=== PATIENT | male | born 1945 | race Hispanic/Latino ===

== ENCOUNTER 2021-12-16 09:18 | Inpatient (IN) | payer MEDICARE, OTHER ==
[2021-12-16] VITALS (7 sets, daily range): BP systolic 134–143; BP diastolic 65–77
[~2021-12-16] VITALS: Ht 157.5 cm; Wt 67.4 kg
[~2021-12-16 09:18] MED LIST: ASPIRIN81 MG PO; EFFIENT10 MG PO; FAMOTIDINE20 MG PO; GLIMEPIRIDE2 MG PO; HUMALOG MI100 UNIT/2 SQ; HUMULIN 70100 UNIT/1 SC; LIPITOR10 MG PO; LOVASTATIN40 MG PO; METFORMIN HCL850 MG PO; OXYBUTYNIN CHLOR5 M1 PO; PAROXETINE HCL20 MG PO; VASOTEC10 M1 PO
[2021-12-16 09:43] LABS: BASOPHILS # (AUTO) 0.1 (0.0-0.1); BASOPHILS % 1.4 % (0.0-1.0); EOSINOPHILS # (AUTO) 0.2 (0.0-0.4); EOSINOPHILS % 4.6 % (0.0-6.0); HEMATOCRIT 27.1 % (38.2-49.6); HEMOGLOBIN 7.7 g/dL (14.0-18.0); LYMPHOCYTES # (AUTO) 0.6 (1.0-3.2); LYMPHOCYTES % 11.4 % (18.0-39.1); MEAN CORPUSCULAR HEMOGLOBIN 20.4 pg (28-32); MEAN CORPUSCULAR HGB CONC 28.4 g/dL (31-35); MEAN CORPUSCULAR VOLUME 71.7 fL (81-99); MONOCYTES # (AUTO) 0.5 (0.2-0.8); MONOCYTES % 10.4 % (4.4-11.3); NEUTROPHILS # (AUTO) 3.7 (2.1-6.9); NEUTROPHILS % 71.8 % (38.7-80.0); PLATELET COUNT 149 x10e3/uL (140-360); RED BLOOD COUNT 3.78 x10e6/uL (4.3-5.7); RED CELL DISTRIBUTION WIDTH 20.3 % (11.7-14.4)
[2021-12-16 10:02] LABS: INR 1.01; PROTHROMBIN TIME 14.2 seconds (11.9-14.5)
[2021-12-16 10:03] LABS: ALBUMIN 3.2 g/dL (3.5-5.0); ALBUMIN/GLOBULIN RATIO 1.1 (0.8-2.0); ANION GAP 14.5 mmol/L (8-16); CALCIUM 8.1 mg/dL (8.4-10.2); CREATININE, SERUM 0.93 mg/dL (0.72-1.25); POTASSIUM 4.5 mmol/L (3.5-5.1)
[2021-12-16] MEDS ORDERED: SODIUM CHLORIDE 0.9% 100 ML ONE (10:21)
[2021-12-16] MEDS ORDERED: IOPAMIDOL 370 MG/ML 100 ML INFUS..BTL INJ ONE (10:21)
[2021-12-16] MEDS ORDERED: SODIUM CHLORIDE 0.9% 1000ML 1,000 ML IV SCH (11:45)
[2021-12-16] MEDS ORDERED: ACETAMINOPHEN 325 MG TAB PO PRN (13:30)
[2021-12-16] MEDS ORDERED: DOCUSATE SODIUM 100 MG CAP PO PRN (13:30)
[2021-12-16] MEDS ORDERED: DEXTROSE 50% SYRINGE 50 ML IV PRN ×2 (13:30→14:00)
[2021-12-16] MEDS ORDERED: SIMETHICONE 80 MG CHEW PO PRN (13:30)
[2021-12-16] MEDS ORDERED: POTASSIUM CHLORIDE 20 MEQ TAB CR PO PRN (13:30)
[2021-12-16] MEDS ORDERED: DIPHENHYDRAMINE HCL 25 MG CAP PO PRN (13:30)
[2021-12-16] MEDS ORDERED: TRAMADOL HCL 50 MG TAB PO PRN (13:30)
[2021-12-16] MEDS ORDERED: LIDOCAINE 4% PATCH TP PRN (13:30)
[2021-12-16] MEDS ORDERED: ALBUTEROL/IPRATROPIUM 3 ML NEB NEB PRN (13:30)
[2021-12-16] MEDS ORDERED: BENZONATATE 100 MG CAP PO PRN (13:30)
[2021-12-16] MEDS ORDERED: HYDRALAZINE HCL 20 MG/ML VIAL IV PRN (13:30)
[2021-12-16] MEDS ORDERED: ONDANSETRON HCL INJ 2MG/ML 2ML 2 MG/ML VIAL IV PRN (13:30)
[2021-12-16] MEDS: OCTREOTIDE ACETATE 500 MCG in SODIUM CHLORIDE 0.9% 250ML 250 ML IV SCH (14:38)
[2021-12-16] MEDS: DEXTROSE 5%/0.9% SOD CHL 1,000 ML IV SCH (14:38)
[2021-12-16 14:43] LABS: HEMATOCRIT 25.4 % (38.2-49.6); HEMOGLOBIN 7.4 g/dL (14.0-18.0)
[2021-12-16 14:47] LABS: % IRON SATURATION 3 % (15-50); IRON 16 ug/dL (65-175); TOTAL IRON BINDING CAPACITY 521 ug/dL (261-478); TRANSFERRIN 372 mg/dL (174-364)
[2021-12-16] MEDS: PROPRANOLOL HCL 10 MG TAB PO SCH (16:07)
[2021-12-16] MEDS: INSULIN LISPRO 100 UNIT/1 ML 3ML VIAL SQ SCH ×2 (16:22→21:30)
[2021-12-16] MEDS ORDERED: SODIUM CHLORIDE 0.9% 250ML 250 ML IV ONE (17:15)
[2021-12-16 19:39] LABS: HEMATOCRIT 24.4 % (38.2-49.6)
[2021-12-16] MEDS ORDERED: ATORVASTATIN 10 MG TAB PO SCH (21:00)
[2021-12-16] MEDS ORDERED: MELATONIN 5 MG TABLET PO PRN (21:00)
[2021-12-16] MEDS ORDERED: SODIUM CHLORIDE 0.9% 250ML 500 ML ONE (22:11)
[2021-12-17] VITALS (8 sets, daily range): BP systolic 97–149; BP diastolic 64–84
[2021-12-17] MEDS: DEXTROSE 5%/0.9% SOD CHL 1,000 ML IV SCH ×3 (00:37→21:25)
[2021-12-17 06:00] LABS: BASOPHILS # (AUTO) 0.1 (0.0-0.1); BASOPHILS % 1.2 % (0.0-1.0); EOSINOPHILS # (AUTO) 0.2 (0.0-0.4); EOSINOPHILS % 4.8 % (0.0-6.0); HEMATOCRIT 29.5 % (38.2-49.6); LYMPHOCYTES # (AUTO) 0.6 (1.0-3.2); LYMPHOCYTES % 14.6 % (18.0-39.1); MEAN CORPUSCULAR HEMOGLOBIN 22.8 pg (28-32); MEAN CORPUSCULAR HGB CONC 30.5 g/dL (31-35); MEAN CORPUSCULAR VOLUME 74.7 fL (81-99); MONOCYTES # (AUTO) 0.6 (0.2-0.8); MONOCYTES % 14.1 % (4.4-11.3); NEUTROPHILS # (AUTO) 2.7 (2.1-6.9); NEUTROPHILS % 65.1 % (38.7-80.0); PLATELET COUNT 119 x10e3/uL (140-360); RED BLOOD COUNT 3.95 x10e6/uL (4.3-5.7); RED CELL DISTRIBUTION WIDTH 21.3 % (11.7-14.4)
[2021-12-17 07:09] LABS: ANION GAP 13.4 mmol/L (8-16); CALCIUM 7.7 mg/dL (8.4-10.2); CREATININE, SERUM 0.9 mg/dL (0.72-1.25); MAGNESIUM 1.6 MG/DL (1.3-2.1); POTASSIUM 4.4 mmol/L (3.5-5.1)
[2021-12-17 07:29] LABS: FERRITIN 12.02 ng/mL (21.81-274.66)
[2021-12-17] MEDS ORDERED: PANTOPRAZOLE SOD 40 MG TABEC PO SCH (07:30)
[2021-12-17 07:59] LABS: ANISOCYTOSIS MODERATE; HYPOCHROMASIA MODERATE; MICROCYTOSIS MODERATE; OVALOCYTES FEW; PLATELET ESTIMATE SLIGHTLY DECREASED; PLATELET MORPHOLOGY COMMENT NORMAL; RBC MORPHOLOGY COMMENT ABNORMAL
[2021-12-17 08:00] LABS: TARGET CELLS FEW
[2021-12-17] MEDS: OCTREOTIDE ACETATE 500 MCG in SODIUM CHLORIDE 0.9% 250ML 250 ML IV SCH (08:48)
[2021-12-17] MEDS: PAROXETINE HCL 20 MG TAB PO SCH (08:51)
[2021-12-17] MEDS: PROPRANOLOL HCL 10 MG TAB PO SCH ×2 (08:51→16:56)
[2021-12-17] MEDS: OXYBUTYNIN CHLORIDE XL 5 MG TAB PO SCH (08:51)
[2021-12-17] MEDS ORDERED: SODIUM CHLORIDE 0.9% 250ML 250 ML ONE (08:53)
[2021-12-17] MEDS: INSULIN LISPRO 100 UNIT/1 ML 3ML VIAL SQ SCH ×4 (08:53→21:00)
[2021-12-17 11:37] LABS: HEMATOCRIT 32.4 % (38.2-49.6); HEMOGLOBIN 9.6 g/dL (14.0-18.0)
[2021-12-17 16:28] LABS: BODY FLUID APPEARANCE CLOUDY; BODY FLUID COLOR YELLOW; BODY FLUID TYPE PERITONEAL
[2021-12-17 16:29] LABS: RBC,BODY FLUID < 2000 cells/uL; WBC,BODY FLUID 183 cells/uL
[2021-12-17 18:10] LABS: LYMPHOCYTES,BODY FLUID 37 %; MONO/MACROPHG,BODY FLUID 56 %; NEUTROPHILS,BODY FLUID 5 %; OTHER CELLS,BODY FLUID 2 %
[2021-12-17 18:46] LABS: HEMATOCRIT 29.1 % (38.2-49.6); HEMOGLOBIN 8.8 g/dL (14.0-18.0)
[2021-12-18] VITALS (9 sets, daily range): BP systolic 126–154; BP diastolic 60–74
[2021-12-18 00:42] LABS: HEMATOCRIT 26.7 % (38.2-49.6); HEMOGLOBIN 8.1 g/dL (14.0-18.0)
[2021-12-18 05:26] LABS: HEMATOCRIT 30.1 % (38.2-49.6); HEMOGLOBIN 9.2 g/dL (14.0-18.0)
[2021-12-18] MEDS: DEXTROSE 5%/0.9% SOD CHL 1,000 ML IV SCH ×3 (06:25→18:06)
[2021-12-18] MEDS: OCTREOTIDE ACETATE 500 MCG in SODIUM CHLORIDE 0.9% 250ML 250 ML IV SCH (06:25)
[2021-12-18] MEDS: INSULIN LISPRO 100 UNIT/1 ML 3ML VIAL SQ SCH ×4 (07:30→19:57)
[2021-12-18] MEDS: PAROXETINE HCL 20 MG TAB PO SCH (09:00)
[2021-12-18] MEDS: PROPRANOLOL HCL 10 MG TAB PO SCH ×3 (09:00→21:28)
[2021-12-18] MEDS: OXYBUTYNIN CHLORIDE XL 5 MG TAB PO SCH (09:00)
[2021-12-18 15:09] LABS: HEMATOCRIT 31.4 % (38.2-49.6); HEMOGLOBIN 9.4 g/dL (14.0-18.0)
[2021-12-18 20:53] LABS: HEMATOCRIT 30.1 % (38.2-49.6)
[2021-12-19] VITALS (7 sets, daily range): BP systolic 140–175; BP diastolic 66–85
[2021-12-19] MEDS: OCTREOTIDE ACETATE 500 MCG in SODIUM CHLORIDE 0.9% 250ML 250 ML IV SCH ×2 (02:30→07:00)
[2021-12-19 06:41] LABS: HEMATOCRIT 30.8 % (38.2-49.6); HEMOGLOBIN 9.2 g/dL (14.0-18.0)
[2021-12-19] MEDS: INSULIN LISPRO 100 UNIT/1 ML 3ML VIAL SQ SCH ×4 (07:30→21:00)
[2021-12-19] MEDS: FUROSEMIDE 20 MG TAB PO SCH (09:00)
[2021-12-19] MEDS: PROPRANOLOL HCL 10 MG TAB PO SCH ×2 (09:00→21:56)
[2021-12-19] MEDS: PAROXETINE HCL 20 MG TAB PO SCH (09:00)
[2021-12-19] MEDS: OXYBUTYNIN CHLORIDE XL 5 MG TAB PO SCH (09:00)
[2021-12-19] MEDS ORDERED: SPIRONOLACTONE 25 MG TAB PO ONE (09:00)
[2021-12-19] MEDS: DEXTROSE 5%/0.9% SOD CHL 1,000 ML IV SCH (11:30)
[2021-12-19 17:44] LABS: HEMATOCRIT 33.5 % (38.2-49.6)
[2021-12-20] VITALS (7 sets, daily range): BP systolic 141–158; BP diastolic 59–76
[2021-12-20 06:55] LABS: BASOPHILS # (AUTO) 0.1 (0.0-0.1); BASOPHILS % 0.8 % (0.0-1.0); EOSINOPHILS # (AUTO) 0.3 (0.0-0.4); EOSINOPHILS % 4.3 % (0.0-6.0); HEMATOCRIT 30.6 % (38.2-49.6); HEMOGLOBIN 9.2 g/dL (14.0-18.0); LYMPHOCYTES # (AUTO) 0.6 (1.0-3.2); LYMPHOCYTES % 10.1 % (18.0-39.1); MEAN CORPUSCULAR HEMOGLOBIN 22.4 pg (28-32); MEAN CORPUSCULAR HGB CONC 30.1 g/dL (31-35); MEAN CORPUSCULAR VOLUME 74.6 fL (81-99); MONOCYTES # (AUTO) 0.7 (0.2-0.8); MONOCYTES % 11.8 % (4.4-11.3); NEUTROPHILS # (AUTO) 4.5 (2.1-6.9); NEUTROPHILS % 72.8 % (38.7-80.0); PLATELET COUNT 118 x10e3/uL (140-360); RED CELL DISTRIBUTION WIDTH 21.9 % (11.7-14.4)
[2021-12-20] MEDS: INSULIN LISPRO 100 UNIT/1 ML 3ML VIAL SQ SCH ×4 (07:30→21:00)
[2021-12-20 07:32] LABS: ANION GAP 11.9 mmol/L (8-16); CALCIUM 7.4 mg/dL (8.4-10.2); CREATININE, SERUM 0.9 mg/dL (0.72-1.25); POTASSIUM 3.9 mmol/L (3.5-5.1)
[2021-12-20] MEDS: FUROSEMIDE 20 MG TAB PO SCH (09:00)
[2021-12-20] MEDS: PROPRANOLOL HCL 10 MG TAB PO SCH ×2 (09:00→21:00)
[2021-12-20] MEDS: OXYBUTYNIN CHLORIDE XL 5 MG TAB PO SCH (09:00)
[2021-12-20] MEDS: PAROXETINE HCL 20 MG TAB PO SCH (09:00)
[2021-12-20 18:16] LABS: HEMOGLOBIN 9.5 g/dL (14.0-18.0)
[2021-12-20] MEDS: OCTREOTIDE ACETATE 500 MCG in SODIUM CHLORIDE 0.9% 250ML 250 ML IV SCH (18:30)
[2021-12-21 00:09] VITALS: BP 135/69
[2021-12-21 05:09] LABS: HEMATOCRIT 30.3 % (38.2-49.6)
[2021-12-21 05:23] LABS: INR 1.16; PROTHROMBIN TIME 15.8 seconds (11.9-14.5)
[2021-12-21 05:24] LABS: PARTIAL THROMBOPLASTIN TIME 29.6 seconds (23.8-35.5)
[2021-12-21 06:00] VITALS: BP 142/68
[2021-12-21] MEDS: INSULIN LISPRO 100 UNIT/1 ML 3ML VIAL SQ SCH ×4 (07:30→20:38)
[2021-12-21 08:07] VITALS: BP 144/78
[2021-12-21] MEDS: PROPRANOLOL HCL 10 MG TAB PO SCH ×2 (09:00→20:35)
[2021-12-21 09:13] VITALS: BP 144/78
[2021-12-21 11:47] VITALS: BP 146/77
[2021-12-21] MEDS: OXYBUTYNIN CHLORIDE XL 5 MG TAB PO SCH (13:14)
[2021-12-21] MEDS: FUROSEMIDE 20 MG TAB PO SCH (13:14)
[2021-12-21] MEDS: PAROXETINE HCL 20 MG TAB PO SCH (13:14)
[2021-12-21] MEDS: OCTREOTIDE ACETATE 500 MCG in SODIUM CHLORIDE 0.9% 250ML 250 ML IV SCH (14:30)
[2021-12-21] MEDS ORDERED: CITRATE OF MAGNESIA 300ML BOTTLE PO ONE (15:00)
[2021-12-21 17:27] LABS: HEMATOCRIT 42.3 % (38.2-49.6); HEMOGLOBIN 12.2 g/dL (14.0-18.0)
[2021-12-21] MEDS ORDERED: PEG (High)/E-LYTE SOLN 4,000 ML BTL PO ONE (19:00)
[2021-12-21 20:00] VITALS: BP 145/58
[2021-12-22] VITALS (7 sets, daily range): BP systolic 128–153; BP diastolic 62–88
[2021-12-22] MEDS: OCTREOTIDE ACETATE 500 MCG in SODIUM CHLORIDE 0.9% 250ML 250 ML IV SCH (01:16)
[2021-12-22 05:08] LABS: ANION GAP 16.5 mmol/L (8-16); CREATININE, SERUM 0.77 mg/dL (0.72-1.25); POTASSIUM 3.5 mmol/L (3.5-5.1)
[2021-12-22] MEDS: INSULIN LISPRO 100 UNIT/1 ML 3ML VIAL SQ SCH ×3 (07:30→16:30)
[2021-12-22] MEDS: PANTOPRAZOLE SOD 40 MG TABEC PO SCH ×2 (07:30→14:59)
[2021-12-22] MEDS: PROPRANOLOL HCL 10 MG TAB PO SCH ×2 (09:00→22:56)
[2021-12-22] MEDS ORDERED: PROPOFOL IV EMULSION 10 MG/ML 20 ML VIAL ONE (13:47)
[2021-12-22] MEDS: FUROSEMIDE 40 MG TAB PO SCH (14:59)
[2021-12-22] MEDS: SPIRONOLACTONE 25 MG TAB PO SCH (14:59)
[2021-12-22] MEDS: PAROXETINE HCL 20 MG TAB PO SCH (14:59)
[2021-12-22] MEDS: OXYBUTYNIN CHLORIDE XL 5 MG TAB PO SCH (14:59)
[2021-12-23] VITALS: BP 139/65
[2021-12-23] MEDS: INSULIN LISPRO 100 UNIT/1 ML 3ML VIAL SQ SCH ×3 (00:37→12:30)
[2021-12-23 04:00] VITALS: BP 106/67
[2021-12-23 04:46] LABS: BASOPHILS # (AUTO) 0.1 (0.0-0.1); BASOPHILS % 0.8 % (0.0-1.0); EOSINOPHILS # (AUTO) 0.2 (0.0-0.4); EOSINOPHILS % 2.4 % (0.0-6.0); HEMATOCRIT 32.3 % (38.2-49.6); HEMOGLOBIN 9.6 g/dL (14.0-18.0); LYMPHOCYTES # (AUTO) 0.9 (1.0-3.2); LYMPHOCYTES % 11.1 % (18.0-39.1); MEAN CORPUSCULAR HEMOGLOBIN 21.8 pg (28-32); MEAN CORPUSCULAR HGB CONC 29.7 g/dL (31-35); MEAN CORPUSCULAR VOLUME 73.4 fL (81-99); MONOCYTES # (AUTO) 1.1 (0.2-0.8); NEUTROPHILS # (AUTO) 5.7 (2.1-6.9); NEUTROPHILS % 71.4 % (38.7-80.0); PLATELET COUNT 133 x10e3/uL (140-360); RED CELL DISTRIBUTION WIDTH 23.6 % (11.7-14.4)
[2021-12-23 05:20] LABS: ANION GAP 13.7 mmol/L (8-16); CALCIUM 7.7 mg/dL (8.4-10.2); CREATININE, SERUM 1.05 mg/dL (0.72-1.25); POTASSIUM 3.7 mmol/L (3.5-5.1)
[2021-12-23] MEDS: OCTREOTIDE ACETATE 500 MCG in SODIUM CHLORIDE 0.9% 250ML 250 ML IV SCH (06:35)
[2021-12-23] MEDS: PANTOPRAZOLE SOD 40 MG TABEC PO SCH (07:30)
[2021-12-23 08:08] VITALS: BP 130/68
[2021-12-23] MEDS: SPIRONOLACTONE 25 MG TAB PO SCH (09:00)
[2021-12-23] MEDS: PAROXETINE HCL 20 MG TAB PO SCH (09:00)
[2021-12-23] MEDS: PROPRANOLOL HCL 10 MG TAB PO SCH (09:00)
[2021-12-23] MEDS: OXYBUTYNIN CHLORIDE XL 5 MG TAB PO SCH (09:00)
[2021-12-23] MEDS: FUROSEMIDE 40 MG TAB PO SCH (09:00)
[2021-12-23 10:26] VITALS: BP 130/68
[2021-12-23] MEDS ORDERED: PANTOPRAZOLE SO40 MG PO (12:07)
[2021-12-23] MEDS ORDERED: ALDACTONE50 MG PO (12:07)
[2021-12-23] MEDS ORDERED: LASIX40 MG PO (12:08)
[2021-12-23] MEDS ORDERED: PROPRANOLOL HCL10 MG PO (12:09)
[2021-12-23 12:16] VITALS: BP 150/73
[2021-12-23] MEDS ORDERED: ONDANSETRON HCL 4 MG ORAL DISINTEGRATING TAB PO PRN (13:45)
[2022-01-12] MEDS ORDERED: OMEPRAZOLE40 MG PO (10:29)
[2022-01-12] MEDS ORDERED: FERROUS SULFAT324 MG PO (10:29)
[2022-01-12] MEDS ORDERED: VITAMIN C500 MG PO (10:29)
== END 2021-12-23 14:23 | disposition home or self-care (01) | DRG 432 ==
LOC: ER 09:22 → ERHOLD 11:43 → OBSVTOIN 11:43 → ER 12:29 → MED/SURG 12:30
PROVIDERS: ADMIT Internal Medicine; ATTEND Internal Medicine
PROC: 02HV33Z Insertion of Infusion Device into Superior Vena Cava, Percutaneous Approach (ICD-10-PCS; 2021-12-16)
PROC: 30243N1 Transfusion of Nonautologous Red Blood Cells into Central Vein, Percutaneous Approach (ICD-10-PCS; 2021-12-16)
PROC: 0W9G3ZZ Drainage of Peritoneal Cavity, Percutaneous Approach (ICD-10-PCS; 2021-12-17)
PROC: 0W9G3ZZ Drainage of Peritoneal Cavity, Percutaneous Approach (ICD-10-PCS; 2021-12-17)
PROC: 06L38CZ Occlusion of Esophageal Vein with Extraluminal Device, Via Natural or Artificial Opening Endoscopic (ICD-10-PCS; principal; 2021-12-22 12:25)
PROC: 0DB98ZX Excision of Duodenum, Via Natural or Artificial Opening Endoscopic, Diagnostic (ICD-10-PCS; 2021-12-22 12:25)
PROC: 0DB78ZX Excision of Stomach, Pylorus, Via Natural or Artificial Opening Endoscopic, Diagnostic (ICD-10-PCS; 2021-12-22 12:25)
DX: K74.69 Other cirrhosis of liver (principal); I85.11 Secondary esophageal varices with bleeding; K76.6 Portal hypertension; R18.8 Other ascites; K31.89 Other diseases of stomach and duodenum; I25.10 Atherosclerotic heart disease of native coronary artery without angina pectoris; E78.5 Hyperlipidemia, unspecified; G47.00 Insomnia, unspecified; D64.9 Anemia, unspecified; I10 Essential (primary) hypertension; Z95.5 Presence of coronary angioplasty implant and graft; G30.9 Alzheimer's disease, unspecified; F02.80 Dementia in other diseases classified elsewhere, unspecified severity, without behavioral disturbance, psychotic disturbance, mood disturbance, and anxiety; Z20.822 Contact with and (suspected) exposure to COVID-19; K44.9 Diaphragmatic hernia without obstruction or gangrene; K29.70 Gastritis, unspecified, without bleeding; E11.69 Type 2 diabetes mellitus with other specified complication
CPT/HCPCS: 36415; 36569; 43239; 43255; 45378; 45385; 49083; 71045; 74174; 74470; 80048; 80053; 82040; 82728; 82948; 83036; 83540; 83690; 83735; 84100; 84157; 84466; 85014; 85018; 85025; 85610; 85730; 86850; 86900; 86920; 87070; 87205; 88112; 88305; 88312; 88342; 89051; 93005; 93306; 94799; 96372; 97139; 99251; 99284; C1729; J2353; J2543; J7030; J7042; J7050; P9016; Q9967

== ENCOUNTER 2022-01-05 20:46 | Emergency (ER) | payer MEDICARE, OTHER ==
[~2022-01-05] VITALS: Ht 157.5 cm; Wt 67.1 kg
[~2022-01-05 20:46] MED LIST changes: +ALDACTONE50 MG PO; +LASIX40 MG PO; +PANTOPRAZOLE SO40 MG PO; +PROPRANOLOL HCL10 MG PO
[2022-01-05] MEDS ORDERED: SODIUM CHLORIDE 0.9% 1000ML 1,000 ML IV STA (20:52)
[2022-01-05] MEDS ORDERED: ONDANSETRON HCL INJ 2MG/ML 2ML 2 MG/ML VIAL IV PRN (21:00)
[2022-01-05 21:49] LABS: BASOPHILS # (AUTO) 0.1 (0.0-0.1); BASOPHILS % 0.6 % (0.0-1.0); EOSINOPHILS # (AUTO) 0.1 (0.0-0.4); EOSINOPHILS % 0.9 % (0.0-6.0); HEMATOCRIT 34.6 % (38.2-49.6); HEMOGLOBIN 10.4 g/dL (14.0-18.0); LYMPHOCYTES # (AUTO) 0.6 (1.0-3.2); LYMPHOCYTES % 5.9 % (18.0-39.1); MEAN CORPUSCULAR HEMOGLOBIN 22.3 pg (28-32); MEAN CORPUSCULAR HGB CONC 30.1 g/dL (31-35); MEAN CORPUSCULAR VOLUME 74.2 fL (81-99); MONOCYTES % 10.1 % (4.4-11.3); NEUTROPHILS # (AUTO) 8.2 (2.1-6.9); NEUTROPHILS % 82.2 % (38.7-80.0); PLATELET COUNT 214 x10e3/uL (140-360); RED BLOOD COUNT 4.66 x10e6/uL (4.3-5.7)
[2022-01-05 21:51] LABS: INR 1.08
[2022-01-05 21:56] LABS: ANION GAP 19.9 mmol/L (8-16); CALCIUM 8.8 mg/dL (8.4-10.2); CREATININE, SERUM 1.21 mg/dL (0.72-1.25); POTASSIUM 3.9 mmol/L (3.5-5.1)
[2022-01-05 22:12] LABS: ALBUMIN 3.4 g/dL (3.5-5.0); ALBUMIN/GLOBULIN RATIO 0.9 (0.8-2.0)
[2022-01-05] MEDS ORDERED: IOPAMIDOL 370 MG/ML 100 ML INFUS..BTL INJ ONE (22:21)
[2022-01-05 23:42] LABS: CLARITY,URINE CLEAR (CLEAR); COLOR,URINE YELLOW (YELLOW); KETONES,URINE NEGATIVE (NEGATIVE); LEUKOCYTE ESTERASE ,URINE NEGATIVE (NEGATIVE); NITRITE,URINE NEGATIVE (NEGATIVE); PROTEIN,URINE DIPSTICK NEGATIVE (NEGATIVE); URINE UROBILINOGEN 0.2 mg/dL (0.2 - 1)
[2022-01-05 23:47] LABS: BACTERIA,URINE FEW /HPF; EPITHELIAL CELLS,URINE RARE /LPF; WBC,URINE (MAN) 0-5 /HPF (0-5)
[2022-01-12] MEDS ORDERED: OMEPRAZOLE40 MG PO (10:29)
[2022-01-12] MEDS ORDERED: FERROUS SULFAT324 MG PO (10:29)
[2022-01-12] MEDS ORDERED: VITAMIN C500 MG PO (10:29)
== END 2022-01-06 00:17 | disposition home or self-care (01) ==
LOC: ER 20:55
DX: R10.30 Lower abdominal pain, unspecified (principal); E11.65 Type 2 diabetes mellitus with hyperglycemia; I10 Essential (primary) hypertension; K76.9 Liver disease, unspecified; I25.10 Atherosclerotic heart disease of native coronary artery without angina pectoris
CPT/HCPCS: 36415; 74177; 80053; 81001; 83690; 84484; 85025; 85610; 93005; 99284; J2405; J7030; Q9967

== ENCOUNTER → 2022-01-12 | Day surgery (SDC) | payer OTHER ==
[~2022-01-12] MED LIST changes: +FERROUS SULFAT324 MG PO; +LIDOCAINE HCL 2% LOCAL INJ 5 ML SDV VIAL INJ ONE; +OMEPRAZOLE40 MG PO; +PROPOFOL IV EMULSION 10 MG/ML 20 ML VIAL ONE; +VITAMIN C500 MG PO
[2022-01-12 13:05] VITALS: BP 150/75
== END | disposition home or self-care (01) ==
LOC: OR 09:38
PROVIDERS: ATTEND Internal Medicine Gastroenterology
DX: K74.60 Unspecified cirrhosis of liver (principal); I85.10 Secondary esophageal varices without bleeding; K29.50 Unspecified chronic gastritis without bleeding; K44.9 Diaphragmatic hernia without obstruction or gangrene; K76.6 Portal hypertension; K31.89 Other diseases of stomach and duodenum; K21.9 Gastro-esophageal reflux disease without esophagitis; E11.9 Type 2 diabetes mellitus without complications; I10 Essential (primary) hypertension; E78.5 Hyperlipidemia, unspecified; I25.10 Atherosclerotic heart disease of native coronary artery without angina pectoris; Z01.812 Encounter for preprocedural laboratory examination; Z20.822 Contact with and (suspected) exposure to COVID-19; Z79.82 Long term (current) use of aspirin; Z79.84 Long term (current) use of oral hypoglycemic drugs; Z95.5 Presence of coronary angioplasty implant and graft
CPT/HCPCS: 0223U; 36415 ×2; 43239; 43244; 82948; 87106; 87205; 88112; 88305; 88312; 88342; J2001; J2704; 43235; 43255

== ENCOUNTER → 2022-04-02 | Outpatient (CLI) | payer MEDICARE ==
[~2022-04-02] MED LIST changes: -LIDOCAINE HCL 2% LOCAL INJ 5 ML SDV VIAL INJ ONE; -PROPOFOL IV EMULSION 10 MG/ML 20 ML VIAL ONE
== END ==
LOC: US 10:02
PROVIDERS: ATTEND Internal Medicine Gastroenterology
DX: K74.00 Hepatic fibrosis, unspecified (principal)
CPT/HCPCS: 76700